=== PATIENT | female | born 1985 | race Caucasian/White ===

== ENCOUNTER → 2020-09-20 | Outpatient (CLI) | payer BC | LOC: RAD 10:08 | DX: G44.049 Chronic paroxysmal hemicrania, not intractable (principal); G93.89 Other specified disorders of brain ==

== ENCOUNTER 2020-10-14 22:24 | Emergency (ER) | payer BC ==
[2020-10-14] MEDS ORDERED: LEVOTHYROXIN0.075 MG PO (22:36)
[2020-10-14 23:25] LABS: EOS % 0.6 % (1.0-5.0); HEMATOCRIT 38.3 % (37.0-47.0); HEMOGLOBIN 12.6 g/dL (12.5-16.0); LYMPH# 1.5 (1.50-4.00); MEAN CELL VOLUME 91 fl (78-100); MEAN CORPUSCULAR HEMOGLOBIN 30 pg (27-31); MEAN CORPUSCULAR HGB CONC 33 g/dL (33-37); MEAN PLATELET VOLUME 10.2 fl (7.4-10.4); MONO # 0.5 (0.20-0.80); NEU # 5.2 (1.40-6.50); PLATELET COUNT 138 K/mm3 (130-400); RED BLOOD COUNT 4.19 M/mm3 (4.10-5.30); RED CELL DISTRIBUTION WIDTH 11.9 % (11.5-14.5); WHITE BLOOD COUNT 7.2 K/mm3 (4.8-10.8)
[2020-10-14 23:36] LABS: ALBUMIN 4.2 g/dL (3.5-5.0); POTASSIUM 3.5 mmol/L (3.5-5.1)
[2020-10-14 23:37] LABS: CALCIUM 9.3 mg/dL (8.3-10.5)
[2020-10-14 23:38] LABS: TOTAL PROTEIN 6.7 g/dL (6.4-8.3)
[2020-10-14 23:40] LABS: TOTAL BILIRUBIN 0.3 mg/dL (0.2-1.2)
[2020-10-14 23:43] LABS: URINE APPEARANCE CLEAR; URINE COLOR YELLOW; URINE PROTEIN(semi-quant) NEGATIVE (NEGATIVE)
[2020-10-14 23:44] LABS: URINE BILIRUBIN NEGATIVE (NEGATIVE); URINE BLOOD 50 ery/uL (NEGATIVE); URINE GLUCOSE NEGATIVE (NEGATIVE); URINE KETONE NEGATIVE (NEGATIVE); URINE LEUKOCYTE ESTERASE TRACE (NEGATIVE); URINE NITRATE NEGATIVE (NEGATIVE); URINE UROBILINOGEN NORMAL (NORMAL); URINE WBC 0-1 /hpf (0-3)
[2020-10-15 00:16] VITALS: BP 137/91
== END 2020-10-15 00:16 | disposition home or self-care (01) ==
LOC: ED 22:24
PROVIDERS: Nurse Practitioner Family
DX: I10 Essential (primary) hypertension (principal); R42 Dizziness and giddiness